=== PATIENT | female | born 1960 | race Caucasian/White ===

== ENCOUNTER 2021-02-12 23:20 | Emergency (ER) | payer OTHER ==
[~2021-02-12] VITALS: Ht 172.7 cm; Wt 94.3 kg
[2021-02-13] MEDS ORDERED: CYCLOBENZAPRINE HCL 10 MG TABLET ONE (00:50)
[2021-02-13] MEDS ORDERED: KETOROLAC TROMETHAMINE 60 MG INJ IM ONE (00:50)
[2021-02-13] MEDS: CYCLOBENZAPRINE HCL 10 MG TABLET PO ONE (00:52)
[2021-02-13] MEDS: KETOROLAC TROMETHAMINE 60 MG INJ IM ONE (00:52)
[2021-02-13] MEDS: TRAMADOL HCL 50 MG TABLET PO ONE (02:10)
--- NOTE | 2021-02-13 02:11 | NUR ---
PO Tramadol 50mg given @ 0211. Patient tolerated well.
[2021-02-13] MEDS ORDERED: TRAMADOL HCL 50 MG TABLET ONE (02:12)
--- NOTE | 2021-02-13 03:08 | NUR ---
Patient discharged to home in stable condition. Written and verbal after care instructions given. Patient verbalizes understanding of instructions. Stressed follow up or return to ER for worsening s/s.
[2021-02-13 06:04] VITALS: BP 130/78
== END 2021-02-13 03:08 | disposition home or self-care (01) ==
LOC: ER 23:23
DX: M54.50 Low back pain, unspecified (principal); Z91.81 History of falling; R03.0 Elevated blood-pressure reading, without diagnosis of hypertension; M51.36 Other intervertebral disc degeneration, lumbar region
CPT/HCPCS: 72072; 72100; 96372; 99284; J1885; A4663